=== PATIENT | female | born 1995 | race Hispanic/Latino ===

== ENCOUNTER 2017-10-28 15:20 | Emergency (ER) | payer MEDICAID, OTHER ==
[~2017-10-28 15:20] MED LIST: MO6B PO; PREN1TAB80 PO
[2017-10-28] MEDS ORDERED: SODIUM CHLORIDE 0.9% 1000ML 1,000 ML IV ONE (16:20)
[2017-10-28] MEDS ORDERED: ONDANSETRON HCL 4 MG/2 ML VIAL ONE (16:21)
[2017-10-28 16:24] LABS: BASOPHILS % (AUTO) 0.2 % (0.0-5.0); EOSINOPHILS % (AUTO) 0.1 % (0.0-8.0); HEMATOCRIT 34.7 % (36-48); LYMPHOCYTES % (AUTO) 4.9 % (21.0-51.0); MEAN CORPUSCULAR HEMOGLOBIN 25.5 pg (27.0-33.0); MEAN CORPUSCULAR HGB CONC 32.8 g/dL (32.0-36.0); MEAN CORPUSCULAR VOLUME 77.7 fL (79-99); NEUTROPHILS % (AUTO) 86.8 % (40.0-77.0); PLATELET COUNT (AUTO) 196 K/uL (130-400); RED BLOOD CELL COUNT(AUTO) 4.46 MIL/uL (4.00-5.50); WHITE BLOOD COUNT (AUTO) 12.2 K/uL (4.8-10.8)
[2017-10-28 16:28] LABS: APPEARANCE,URINE SL CLOUDY (CLEAR); BILIRUBIN,URINE NEGATIVE (NEGATIVE); COLOR,URINE YELLOW (YELLOW); GLUCOSE, URINE (UA) NEGATIVE (NEGATIVE); KETONES,URINE 5 mg/dL (NEGATIVE); LEUKOCYTE ESTERASE ,URINE NEGATIVE (NEGATIVE); NITRATE,URINE NEGATIVE (NEGATIVE); OCCULT BLOOD,URINE NEGATIVE (NEGATIVE); PH,URINE 5.5 (5.0-8.0); PROTEIN,URINE TRACE (NEGATIVE); UROBILINOGEN,URINE 0.2 mg/dL (0.2-1.0)
[2017-10-28 16:31] LABS: HCG,QUAL RESULT NEGATIVE (NEGATIVE)
[2017-10-28 16:42] LABS: RAPID GROUP A STREP POSITIVE (NEGATIVE)
[2017-10-28 16:43] LABS: BACTERIA,URINE Few /HPF (None Seen); RBC,URINE 0-1 /HPF (0-1); WBC,URINE 0-1 /HPF (0-1)
[2017-10-28 16:44] LABS: MUCUS,URINE Moderate LPF (None Seen); SQUAMOUS EPITHELIAL CELL,UR Few /HPF (0-2)
[2017-10-28 16:46] LABS: CREATININE 0.7 mg/dL (0.5-1.5); POTASSIUM 3.6 mmol/L (3.5-5.1)
[2017-10-28 16:51] LABS: ALBUMIN 3.7 g/dL (3.5-5.0); BILIRUBIN,TOTAL 1.5 mg/dL (0.2-1.0)
[2017-10-28] MEDS ORDERED: CEFTRIAXONE SODIUM 1 GM ONE (16:52)
[2017-10-28] MEDS ORDERED: SODIUM CHLORIDE 0.9% 50 ML IV ONE (16:52)
== END 2017-10-28 17:55 | disposition home or self-care (01) ==
LOC: EDH 15:20
DX: J02.0 Streptococcal pharyngitis (principal); R11.2 Nausea with vomiting, unspecified; R19.7 Diarrhea, unspecified; R50.81 Fever presenting with conditions classified elsewhere
CPT/HCPCS: 36415; 80053; 81001; 81025; 85025; 87804 ×2; 87880; 96361; 96374; 96375; 99284; J0696; J2405; J7030

== ENCOUNTER 2018-08-16 13:23 | Emergency (ER) | payer MEDICAID ==
[2018-08-16 14:51] LABS: BASOPHILS % (AUTO) 0.9 % (0.0-5.0); EOSINOPHILS % (AUTO) 2.7 % (0.0-8.0); HEMATOCRIT 34.1 % (36-48); LYMPHOCYTES % (AUTO) 24.1 % (21.0-51.0); MEAN CORPUSCULAR HEMOGLOBIN 24.8 pg (27.0-33.0); MEAN CORPUSCULAR HGB CONC 31.6 g/dL (32.0-36.0); MEAN CORPUSCULAR VOLUME 78.4 fL (79-99); MONOCYTES % (AUTO) 11.4 % (3.0-13.0); NEUTROPHILS % (AUTO) 60.9 % (40.0-77.0); PLATELET COUNT (AUTO) 268 K/uL (130-400); RED BLOOD CELL COUNT(AUTO) 4.35 MIL/uL (4.00-5.50); RED CELL DISTRIBUTION WIDTH 14.9 % (11.0-15.5); WHITE BLOOD COUNT (AUTO) 6.3 K/uL (4.8-10.8)
== END 2018-08-16 16:08 | disposition home or self-care (01) ==
LOC: EDH 13:23
DX: O20.0 Threatened abortion (principal); Z3A.01 Less than 8 weeks gestation of pregnancy
CPT/HCPCS: 36415; 76817; 84702; 85025; 86900; 86901

== ENCOUNTER 2019-09-03 20:36 | Emergency (ER) | payer MEDICAID, OTHER ==
[~2019-09-03 20:36] MED LIST changes: +IBUP-2088 PO; -MO6B PO
[2019-09-03] MEDS ORDERED: DICYCLOMINE HCL 20 MG TAB ONE (21:12)
[2019-09-03 21:23] LABS: BASOPHILS % (AUTO) 0.3 % (0.0-5.0); EOSINOPHILS % (AUTO) 0.9 % (0.0-8.0); HEMATOCRIT 36.4 % (36-48); MEAN CORPUSCULAR HEMOGLOBIN 25.8 pg (27.0-33.0); MEAN CORPUSCULAR HGB CONC 31.9 g/dL (32.0-36.0); MEAN CORPUSCULAR VOLUME 81.1 fL (79-99); MONOCYTES % (AUTO) 14.6 % (3.0-13.0); PLATELET COUNT (AUTO) 203 K/uL (130-400); RED BLOOD CELL COUNT(AUTO) 4.49 MIL/uL (4.00-5.50); RED CELL DISTRIBUTION WIDTH 13.4 % (11.0-15.5); WHITE BLOOD COUNT (AUTO) 8.9 K/uL (4.8-10.8)
[2019-09-03 21:43] LABS: CREATININE 0.7 mg/dL (0.5-1.5); POTASSIUM 3.4 mmol/L (3.5-5.1)
[2019-09-03 21:48] LABS: ALBUMIN 3.3 g/dL (3.5-5.0); BILIRUBIN,TOTAL 0.5 mg/dL (0.2-1.0)
[2019-09-03 23:27] LABS: APPEARANCE,URINE Clear (CLEAR); BILIRUBIN,URINE Negative (NEGATIVE); COLOR,URINE Yellow (YELLOW); GLUCOSE, URINE (UA) Negative (NEGATIVE); KETONES,URINE Negative (NEGATIVE); LEUKOCYTE ESTERASE ,URINE Negative (NEGATIVE); NITRATE,URINE Negative (NEGATIVE); OCCULT BLOOD,URINE Negative (NEGATIVE); PH,URINE 6.5 (5.0-8.0); PROTEIN,URINE Negative (NEGATIVE); UROBILINOGEN,URINE 0.2 mg/dL (0.2-1.0)
[2019-09-03 23:30] LABS: HCG,QUAL RESULT NEGATIVE (NEGATIVE)
[2019-09-03] MEDS ORDERED: HYOSCYAMINE SULFATE 0.125 MG TAB.SUBL SL ONE (23:47)
[2019-09-04] MEDS ORDERED: FAMOTIDINE 20MG TAB 20 MG TAB PO SCH (07:30)
== END 2019-09-04 00:20 | disposition home or self-care (01) ==
LOC: EDH 20:36
DX: R19.7 Diarrhea, unspecified (principal); R10.84 Generalized abdominal pain
CPT/HCPCS: 36415; 76705; 80053; 81003; 81025; 83690; 85025

== ENCOUNTER 2023-10-27 04:40 | Observation (INO) | payer BC, MEDICAID ==
[~2023-10-27] VITALS: Ht 162.6 cm; Wt 67.1 kg
[2023-10-27] MEDS: HYDROCODONE/ACETAMINOPHEN 5/325 MG TAB PO ONE (05:08)
[2023-10-27 05:28] LABS: BASOPHILS # (AUTO) 0.03 K/uL (0.00-0.20); BASOPHILS % (AUTO) 0.3 % (0.0-5.0); EOSINOPHILS # (AUTO) 0.12 K/uL (0.00-0.70); EOSINOPHILS % (AUTO) 1.2 % (0.0-8.0); IMMATURE GRANULOCYTE ABSOLUTE 0.04 K/uL (0-1); LYMPHOCYTES # (AUTO) 1.5 K/uL (1.0-4.8); LYMPHOCYTES % (AUTO) 14.7 % (21.0-51.0); MEAN CORPUSCULAR HEMOGLOBIN 30.5 pg (27.0-33.0); MEAN CORPUSCULAR VOLUME 87.2 fL (79-99); MONOCYTES # (AUTO) 0.8 K/uL (0.1-1.0); MONOCYTES % (AUTO) 8.1 % (3.0-13.0); NEUTROPHILS # (AUTO) 7.6 K/uL (1.8-7.7); NEUTROPHILS % (AUTO) 75.3 % (40.0-77.0); PLATELET COUNT (AUTO) 205 K/uL (130-400); RED BLOOD CELL COUNT(AUTO) 3.67 MIL/uL (4.00-5.50); RED CELL DISTRIBUTION WIDTH 12.5 % (11.0-15.5); WHITE BLOOD COUNT (AUTO) 10.1 K/uL (4.8-10.8)
[2023-10-27 05:40] LABS: CREATININE 0.6 mg/dL (0.5-1.0); POTASSIUM 3.7 mmol/L (3.5-5.1)
[2023-10-27 05:41] LABS: INR <= 0.93 (0.85-1.15); PROTHROMBIN TIME 10.4 SEC (9.6-11.6)
[2023-10-27 05:42] LABS: PARTIAL THROMBOPLASTIN TIME 25.4 SEC (26.3-35.5)
[2023-10-27 05:59] LABS: ALBUMIN 3.3 g/dL (3.5-5.0); BILIRUBIN,TOTAL 0.7 mg/dL (0.2-1.0); TOTAL PROTEIN, SERUM 7.4 g/dL (6.0-8.3)
[2023-10-27] MEDS: MORPHINE 4 MG SYG IVP ONE (07:19)
[2023-10-27] MEDS: ONDANSETRON 4MG INJ IVP ONE (07:19)
[2023-10-27] MEDS: 0.9%NACL 1000ML 1,000 ML IV ONE (07:20)
[2023-10-27 08:03] VITALS: O2SAT 100
[2023-10-27 09:30] VITALS: BP 96/59; PULSE 81; RESP 18
[2023-10-27 11:30] VITALS: BP 92/55; PULSE 71; RESP 18
[2023-10-27] MEDS ORDERED: ACET325T51 PO (14:00)
[2023-10-27 15:55] VITALS: BP 101/61; PULSE 85; RESP 18
[2023-10-27] MEDS ORDERED: MIDAZOLAM HCL 1 MG/ML 2ML VIAL ONE ×2 (17:30→17:56)
[2023-10-27] MEDS ORDERED: FENTANYL CITRATE PF 50 MCG/1 ML 2ML VIAL ONE (17:30)
[2023-10-27] MEDS ORDERED: PROPOFOL 10 MG/ML 20ML VIAL IV ONE (17:30)
[2023-10-27] MEDS ORDERED: LIDOCAINE PF 100MG/5ML (2%) SYRINGE 5ML ONE (17:30)
[2023-10-27] MEDS ORDERED: EPHEDRINE SULFATE 50 MG/ML AMPULE ONE (17:34)
[2023-10-27] MEDS ORDERED: DEXAMETHASONE SOD PHOSPHATE 10MG/ML 1ML VIAL ONE (17:39)
[2023-10-27] MEDS ORDERED: ONDANSETRON 4MG INJ ONE (17:39)
[2023-10-27] MEDS ORDERED: OXYTOCIN 10 USP UNITS/ML ONE (17:57)
[2023-10-27] MEDS: MEPERIDINE-PF 25 MG/ML SYG IVP ONE (18:47)
[2023-10-27 20:23] VITALS: BP 97/64; PULSE 104; RESP 20
[2023-10-27] MEDS ORDERED: ACETAMINOPHEN 500 MG TABLET PO PRN (21:00)
[2023-10-27] MEDS ORDERED: ACETAMINOPHEN WITH CODEINE 1 TAB TAB PO PRN (21:00)
[2023-10-27] MEDS ORDERED: ONDANSETRON 4MG INJ IVP PRN (21:00)
[2023-10-27 23:18] VITALS: BP 106/59; PULSE 92; RESP 20
[2023-10-28 03:07] VITALS: BP 96/59; PULSE 85; RESP 18
[2023-10-28 07:45] VITALS: BP 90/56; PULSE 70; RESP 18
[2023-10-28] MEDS ORDERED: FERS325 PO (09:14)
== END 2023-10-28 10:35 | disposition home or self-care (01) ==
LOC: EDH 04:40 → INTOOBSV 04:41 → EDHIP 04:41 → WSH 09:25
PROVIDERS: ADMIT Obstetrics & Gynecology; ATTEND Obstetrics & Gynecology
DX: O36.4XX0 Maternal care for intrauterine death, not applicable or unspecified (principal); Z3A.12 12 weeks gestation of pregnancy
CPT/HCPCS: 59820; 96374; 96375; 99285; 80053; 84702; 85025; 85610; 85730; 86900; 86901; 36415; 88305; 76801; G0378 ×25; J3010; J1100; J7030; J2001; J3490; J2250 ×2; J2590; J2704; J2405 ×2; J2270; J2175; J7120 ×2

== ENCOUNTER 2024-09-26 00:36 | Emergency (ER) | payer BC, MEDICAID ==
[~2024-09-26] VITALS: Ht 167.6 cm; Wt 71.2 kg
[~2024-09-26 00:36] MED LIST changes: +ACET-3859 PO; +FERS325 PO
--- NOTE | 2024-09-26 00:41 | NUR ---
UA CUP PROVIDED
--- NOTE | 2024-09-26 00:55 | NUR ---
PT CARE ASSUMED AT THIS TIME
--- NOTE | 2024-09-26 00:56 | ERN ---
General Chief Complaint: OB>20 weeks gest. Stated Complaint: , ABD PAIN, ANXIOUS, SWEATY PALMS Time Seen by MD: 00:44 Source: patient History of Present Illness Initial Comments Patient is a six three deliveries two miscarriages. She comes in because today she felt a little anxiety with numbness and tingling in her extremities. She felt a little lightheaded as well associated with nausea. She does have a right lower quadrant tenderness and pressure feelings with some contractures. She does not feel the baby move. No vomiting afebrile no fevers or chills no upper respiratory tract infections. Otherwise healthy. Allergies: Coded Allergies: No Known Drug Allergies (Verified Allergy, 11/23/12) Home Meds Reported Medications Ferrous Sulfate (Ferrous Sulfate) 325 Mg (65 Mg Iron) Ectab, 325 MG PO DAILYDINNER, #30 TAB.EC 10/28/23 Acetaminophen (Acetaminophen) 325 Mg Tablet, 650 MG PO Q6H PRN for PAIN LEVEL 4 TO 6, TAB 10/27/23 Ibuprofen (Motrin/Advil) 600 Mg Tab, 600 MG PO Q6H PRN for PAIN LEVEL 1 TO 5, #30 TAB 0 Refills 01/24/17 Vits W-Ca,Fe,FA(<1Mg) ( Vitamins) 1 Each Tablet, 1 EACH PO DAILY, TAB 09/17/14 Past Medical History Past Medical History: Hypertension Past Surgical History: None Female( History) : 5 Para: 3 Aborts: 2 Constitutional: (-) chills, (-) diaphoresis, (-) fever, (-) malaise, (-) weakness, (-) other documentation EENTM: (-) eye pain, (-) blurred vision, (-) tearing, (-) double vision, (-) ear pain, (-) ear discharge, (-) nose pain, (-) nose congestion, (-) throat pain, (-) Throat swelling, (-) mouth pain, (-) tooth pain, (-) mouth swelling, (-) other documentation Respiratory: (-) cough, (-) orthopnea, (-) short of breath, (-) stridor, (-) wheezing, (-) other documentation Cardiovascular: (-) chest pain, (-) edema, (-) palpitations, (-) syncope, (-) dyspnea on exertion, (-) other documentation Gastrointestinal/Abdominal: (+) nausea Genitourinary: (-) vaginal discharge, (-) vaginal bleeding, (-) dysuria, (-) frequency, (-) hematuria, (-) pain, (-) other documentation Musculoskeletal: (-) Neck pain, (-) back pain, (-) Flank Pain, (-) joint pain, (-) joint swelling, (-) muscle pain, (-) muscle stiffness, (-) gout, (-) other documentation Neuro: (-) altered mental status, (-) headache, (-) syncope, (-) paralysis, (-) numbness, (-) seizure, (-) pre-existing deficit, (-) tremors, (-) weakness, (-) dizziness, (-) slurred speech, (-) vertigo, (-) other documentation Physical Exam General Appearance: (+) no apparent distress Orientation: (+) alert, (+) oriented x 3 Eye: bilateral eye normal inspection, bilateral eye PERRL, bilateral eye EOMI Ear, Nose, Throat: (+) hearing grossly normal, (+) normal ENT inspection, (+) m oist mucous membraine Neck: (+) normal inspection, (+) supple, (+) full range of motion Respiratory: (+) chest non-tender, (+) lungs clear, (+) well ventilated Heart: (+) regular, (+) no gallop Gastrointestinal: (+) soft, (+) bowel sound present Gastrointestinal Comment There is right lower quadrant tenderness, more at the patient's groin. Results Laboratory and Microbiology Lab and Micro Result Laboratory Tests Test 09/26/24 01:21 White Blood Count 7.4 K/uL (4.8-10.8) Red Blood Count 4.03 MIL/uL (4.00-5.50) Hemoglobin 10.1 g/dL (12.0-16.0) L Hematocrit 33.0 % (36-48) L Mean Corpuscular Volume 81.9 fL (79-99) Mean Corpuscular Hemoglobin 25.1 pg (27.0-33.0) L Mean Corpuscular Hemoglobin Concent 30.6 g/dL (32.0-36.0) L Red Cell Distribution Width 14.4 % (11.0-15.5) Platelet Count 229 K/uL (130-400) Mean Platelet Volume 11.1 fL (7.5-10.5) H Nucleated Red Blood Cells 0.0 % (0.0-0.19) Red Blood Cell Morphology See comments Sodium Level 136 mmol/L (136-145) Potassium Level 3.6 mmol/L (3.5-5.1) Chloride Level 103 mmol/L (101-111) Carbon Dioxide Level 23 mmol/L (21-32) Blood Urea Nitrogen 7 mg/dL (7-18) Creatinine 0.5 mg/dL (0.5-1.0) Glomerular Filtration Rate Calc 129 mL/min (>90) Random Glucose 106 mg/dL (70-105) H Total Calcium 8.2 mg/dL (8.5-10.1) L MDM Not clear on what is causing the patient's symptoms. If could be simple dehydration or anemia or electrolyte imbalance. Patient is not bleeding and does not have dysuria but I will check a UA anyway. I will also do a vaginal ultrasound to confirm viability and be sure there are no concerns. I will also give the patient a L of LR. Ultrasound of the uterus shows a healthy baby no abnormalities. Patient's c hemistry panel was normal. Patient's CBC was normal. I did not order a UA as the patient had assured me there was no change in symptoms with urination at all. I offered to do a urine analysis for her and she said that that was okay we did not have to. I told her please come back if she has any hint or suspicion of a urinary tract infection. ED Course Orders Procedure Category Date Status Time Cbc Without LAB 09/26/24 Complete Differential 00:56 Basic Metabolic Panel LAB 09/26/24 Complete 00:56 Lactated Ringers PHA 09/26/24 Complete 1000ml (Lactated 00:56 Us Ob >14 Weeks US 09/26/24 Taken 00:56 Urinalysis Profile LAB 09/26/24 Logged 02:18 Current Medications Medications (Trade) Dose Ordered Sig/Martell Route PRN Reason Start Time Stop Time Status Last Admin Dose Admin Lactated Ringer's (Lactated Ringers 1000ml) 1,000 ml BOLUS STAT IV 09/26/24 00:56 09/26/24 00:58 DC 09/26/24 01:23 Vital Signs Date Time Temp Pulse Resp B/P (MAP) Pulse Ox O2 Delivery O2 Flow Rate FiO2 09/26/24 00:55 98.8 102 16 105/61 99 Room Air* 0 21 09/26/24 00:37 96.6 88 16 113/69 99 Room Air DX & DISP Disposition: Discharge Departure Impression: Primary Impression: Bilateral numbness and tingling of arms and legs Condition: Stable Additional Instructions: Please return if you have any urinary tract symptoms or concerns about the . Follow-up with your sugar laboratory assistant. Referrals: SELF,REFERRAL (PCP) LEONA SOTOMAYOR MD Sep 26, 2024 00:56
[2024-09-26] MEDS: LACTATED RINGERS 1000ML IV STA (01:23)
[2024-09-26 01:27] LABS: MEAN CORPUSCULAR HEMOGLOBIN 25.1 pg (27.0-33.0); MEAN CORPUSCULAR HGB CONC 30.6 g/dL (32.0-36.0); MEAN CORPUSCULAR VOLUME 81.9 fL (79-99); PLATELET COUNT (AUTO) 229 K/uL (130-400); RED BLOOD CELL COUNT(AUTO) 4.03 MIL/uL (4.00-5.50); RED CELL DISTRIBUTION WIDTH 14.4 % (11.0-15.5); WHITE BLOOD COUNT (AUTO) 7.4 K/uL (4.8-10.8)
[2024-09-26 01:38] LABS: CREATININE 0.5 mg/dL (0.5-1.0); POTASSIUM 3.6 mmol/L (3.5-5.1)
[2024-09-26 02:41] LABS: ADD UA MICROSCOPIC YES; APPEARANCE,URINE CLEAR (CLEAR); BILIRUBIN,URINE NEGATIVE (NEGATIVE); COLOR,URINE LIGHT-YELLOW (YELLOW); GLUCOSE, URINE (UA) NEGATIVE (NEGATIVE); KETONES,URINE NEGATIVE (NEGATIVE); LEUKOCYTE ESTERASE ,URINE 25 Leu/uL (NEGATIVE); NITRATE,URINE NEGATIVE (NEGATIVE); OCCULT BLOOD,URINE NEGATIVE (NEGATIVE); PH,URINE 6.5 (5.0-8.0); PROTEIN,URINE NEGATIVE (NEGATIVE); UROBILINOGEN,URINE 0.2 mg/dL (0.2-1.0)
[2024-09-26 02:43] LABS: MUCUS,URINE RARE LPF (None Seen); RBC,URINE 0-1 /HPF (0-1); SQUAMOUS EPITHELIAL CELL,UR RARE /HPF (0-2)
[2024-09-26 02:48] VITALS: BP 96/58; PULSE 95; RESP 17; TEMP 98.1; O2SAT 98
--- NOTE | 2024-09-26 08:59 | HMCIMG ---
US OB >14 WEEKS HISTORY: Right lower abdominal pain COMPARISON: None TECHNIQUE: ultrasound study was performed. FINDINGS: There is single intrauterine gestation with estimated gestational age of 32 weeks. heart rate is 160 beats per minute. The fetus is in cephalic presentation. weight is estimated to be 1960 grams. Amniotic fluid volume is 12.02 centimeter. The placenta is located anteriorly. No evidence of placenta previa is seen. There is no evidence of nuchal cord. IMPRESSION: 1. There is single intrauterine gestation with estimated gestational age of 32 weeks. heart rate is 160 beats per minute.
== END 2024-09-26 03:01 | disposition home or self-care (01) ==
LOC: EDH 00:36
DX: O26.893 Other specified pregnancy related conditions, third trimester (principal); R20.0 Anesthesia of skin; R20.2 Paresthesia of skin; O10.912 Unspecified pre-existing hypertension complicating pregnancy, second trimester; Z79.899 Other long term (current) drug therapy; Z3A.32 32 weeks gestation of pregnancy
CPT/HCPCS: 99284; 96360; 76805; 96361; 80048; 85027; 81001; 36415; J7120

== ENCOUNTER 2024-11-10 11:38 | Emergency (ER) | payer MEDICAID ==
[~2024-11-10] VITALS: Ht 162.6 cm; Wt 68.7 kg
[2024-11-10 12:15] LABS: APPEARANCE,URINE CLEAR (CLEAR); BILIRUBIN,URINE NEGATIVE (NEGATIVE); COLOR,URINE LIGHT-YELLOW (YELLOW); GLUCOSE, URINE (UA) NEGATIVE (NEGATIVE); KETONES,URINE NEGATIVE (NEGATIVE); LEUKOCYTE ESTERASE ,URINE 250 Leu/uL (NEGATIVE); NITRATE,URINE NEGATIVE (NEGATIVE); OCCULT BLOOD,URINE LARGE (NEGATIVE); PROTEIN,URINE NEGATIVE (NEGATIVE)
[2024-11-10 12:17] LABS: ADD UA MICROSCOPIC YES
[2024-11-10 12:22] LABS: MUCUS,URINE RARE LPF (None Seen); RBC,URINE 51-100 /HPF (0-1); SQUAMOUS EPITHELIAL CELL,UR RARE /HPF (0-2)
[2024-11-10 12:26] LABS: BASOPHILS # (AUTO) 0.03 K/uL (0.00-0.20); BASOPHILS % (AUTO) 0.3 % (0.0-5.0); EOSINOPHILS # (AUTO) 0.01 K/uL (0.00-0.70); EOSINOPHILS % (AUTO) 0.1 % (0.0-8.0); HEMATOCRIT 31.3 % (36-48); IMMATURE GRANULOCYTE ABSOLUTE 0.05 K/uL (0-1); LYMPHOCYTES # (AUTO) 0.6 K/uL (1.0-4.8); LYMPHOCYTES % (AUTO) 7.2 % (21.0-51.0); MEAN CORPUSCULAR HEMOGLOBIN 23.6 pg (27.0-33.0); MEAN CORPUSCULAR HGB CONC 30.7 g/dL (32.0-36.0); MEAN CORPUSCULAR VOLUME 77.1 fL (79-99); MONOCYTES # (AUTO) 0.6 K/uL (0.1-1.0); NEUTROPHILS # (AUTO) 7.6 K/uL (1.8-7.7); NEUTROPHILS % (AUTO) 84.8 % (40.0-77.0); PLATELET COUNT (AUTO) 248 K/uL (130-400); RED BLOOD CELL COUNT(AUTO) 4.06 MIL/uL (4.00-5.50); RED CELL DISTRIBUTION WIDTH 16.1 % (11.0-15.5); WHITE BLOOD COUNT (AUTO) 8.9 K/uL (4.8-10.8)
[2024-11-10 12:35] LABS: CREATININE 0.5 mg/dL (0.5-1.0); POTASSIUM 3.7 mmol/L (3.5-5.1)
[2024-11-10 12:39] LABS: ALBUMIN 2.5 g/dL (3.5-5.0); BILIRUBIN,TOTAL 0.7 mg/dL (0.2-1.0); TOTAL PROTEIN, SERUM 7.1 g/dL (6.0-8.3)
--- NOTE | 2024-11-10 13:03 | ERN ---
ED Note History of Present Illness Stated Complaint: ABDOMINAL PAIN Chief Complaint: Abdominal Pain Time Seen by MD: 11:47 Time Seen by Midlevel: 11:48 Dictation: 29-year-old female presents to the emergency department due to concern of having abdominal discomfort primarily to the suprapubic area. Patient states that she had a vaginal delivery on 11/07/2024. She denies having had any problems during the or the delivery. Patient states that she is pending to follow up with her Ob the. She states that she is a 6 ab 2 para 4. Patient reports having some chills associated with this. Currently, there is some r eport of having any fever or vaginal discharge. Upon initial evaluation, the patient presents mildly uncomfortable looking. 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 Home Meds Reported Medications Ferrous Sulfate (Ferrous Sulfate) 325 Mg (65 Mg Iron) Ectab, 325 MG PO DAILYDINNER, #30 TAB.EC 10/28/23 Acetaminophen (Acetaminophen) 325 Mg Tablet, 650 MG PO Q6H PRN for PAIN LEVEL 4 TO 6, TAB 10/27/23 Ibuprofen (Motrin/Advil) 600 Mg Tab, 600 MG PO Q6H PRN for PAIN LEVEL 1 TO 5, #30 TAB 0 Refills 01/24/17 Vits W-Ca,Fe,FA(<1Mg) ( Vitamins) 1 Each Tablet, 1 EACH PO DAILY, TAB 09/17/14 Past Medical History Past Medical History: Anemia, Hypotension Surgical History: None : 6 Para: 4 Aborts: 2 RN Note Reviewed/Agreed w/PFSH: Yes Review of System Dictation Abdomen/GI: Abdominal pain Initial Vital Sign VS Vital Signs Date Time Temp Pulse Resp B/P (MAP) Pulse Ox O2 Delivery O2 Flow Rate FiO2 11/10/24 11:41 100.2 103 20 106/69 100 Room Air 0 11/10/24 12:08 21 Physical Exam Dictation General: awake, alert, NAD Head/Face: Normocephalic, atraumatic Eyes: PERRL, EOMI ENT: Oral mucosa moist Neck: Trachea midline, supple Cardiovascular: RRR, no edema Respiratory: Symmetrical, non-labored Abdomen: Soft, non-tender, non-distended, no guarding. Skin: Warm, dry, good turgor, no rash MS/Extremity: Pulses equal, no cyanosis, neurovascular intact, FROM Neuro: COAx4, GCS 15, steady gait, Psych: Normal behavior, mood, and affect normal Results (Laboratory/Radiology) Laboratory/Radiology Laboratory Tests Test 11/10/24 11:59 11/10/24 12:06 White Blood Count 8.9 K/uL (4.8-10.8) Red Blood Count 4.06 MIL/uL (4.00-5.50) Hemoglobin 9.6 g/dL (12.0-16.0) L Hematocrit 31.3 % (36-48) L Mean Corpuscular Volume 77.1 fL (79-99) L Mean Corpuscular Hemoglobin 23.6 pg (27.0-33.0) L Mean Corpuscular Hemoglobin Concent 30.7 g/dL (32.0-36.0) L Red Cell Distribution Width 16.1 % (11.0-15.5) H Platelet Count 248 K/uL (130-400) Mean Platelet Volume 11.8 fL (7.5-10.5) H Immature Granulocyte % (Auto) 0.6 % (0-1) Neutrophils (%) (Auto) 84.8 % (40.0-77.0) H Lymphocytes (%) (Auto) 7.2 % (21.0-51.0) L Monocytes (%) (Auto) 7.0 % (3.0-13.0) Eosinophils (%) (Auto) 0.1 % (0.0-8.0) Basophils (%) (Auto) 0.3 % (0.0-5.0) Neutrophils # (Auto) 7.6 K/uL (1.8-7.7) Lymphocytes # (Auto) 0.6 K/uL (1.0-4.8) L Monocytes # (Auto) 0.6 K/uL (0.1-1.0) Eosinophils # (Auto) 0.01 K/uL (0.00-0.70) Basophils # (Auto) 0.03 K/uL (0.00-0.20) Absolute Immature Granulocyte (auto 0.05 K/uL (0-1) Nucleated Red Blood Cells 0.0 % (0.0-0.19) White Cell Morphology Comment See comments Red Blood Cell Morphology See comments Sodium Level 135 mmol/L (136-145) L Potassium Level 3.7 mmol/L (3.5-5.1) Chloride Level 102 mmol/L (101-111) Carbon Dioxide Level 25 mmol/L (21-32) Blood Urea Nitrogen 7 mg/dL (7-18) Creatinine 0.5 mg/dL (0.5-1.0) Glomerular Filtration Rate Calc 129 mL/min (>90) Random Glucose 97 mg/dL (70-105) Total Calcium 8.7 mg/dL (8.5-10.1) Total Bilirubin 0.7 mg/dL (0.2-1.0) Aspartate Amino Transf (AST/SGOT) 30 U/L (10-37) Alanine Aminotransferase (ALT/SGPT) 34 U/L (12-78) Alkaline Phosphatase 110 U/L (50-136) Total Protein 7.1 g/dL (6.0-8.3) Albumin 2.5 g/dL (3.5-5.0) L Lipase 35 U/L (16-77) Urine Color LIGHT-YELLOW (YELLOW) Urine Appearance CLEAR (CLEAR) Urine pH 7.0 (5.0-8.0) Urine Specific [place] 1.025 (1.001-1.031) Urine Protein NEGATIVE mg/dL (NEGATIVE) Urine Glucose (UA) NEGATIVE mg/dL (NEGATIVE) Urine Ketones NEGATIVE mg/dL (NEGATIVE) Urine Occult Blood LARGE (NEGATIVE) H Urine Nitrate NEGATIVE (NEGATIVE) Urine Bilirubin NEGATIVE mg/dL (NEGATIVE) Urine Urobilinogen 2.0 mg/dL (0.2-1.0) H Urine Leukocyte Esterase 250 Atif/uL (NEGATIVE) H Urine RBC 51-100 /HPF (0-1) H Urine WBC 11-25 /HPF (0-1) H Urine Squamous Epithelial Cells RARE /HPF (0-2) Urine Bacteria None /HPF (None Seen) Labs Reviewed?: Yes Ultrasound Comment: Ultrasound pelvic nonobstructive complete for no concerned with retained products of conception. ED Course ED Course Orders Procedure Category Date Status Time Cbc With Differential LAB 11/10/24 Complete 12:08 Comprehensive LAB 11/10/24 Complete Metabolic Panel 12:08 Urinalysis Profile LAB 11/10/24 Complete 12:08 Lipase LAB 11/10/24 Complete 12:08 Saline Lock Iv CPOE 11/10/24 Transmitted 12:08 Us Pelvic Non-Ob Comp US 11/10/24 Resulted 12:08 Culture Urine DARIN 11/10/24 In Process 12:20 0.9%Nacl 1000ml (Ns PHA 11/10/24 Complete 1000ml) 13:30 Current Medications Medications (Trade) Dose Ordered Sig/Martell Route PRN Reason Start Time Stop Time Status Last Admin Dose Admin Sodium Chloride 1,000 ml @ 0 mls/hr ONCE ONCE IV 11/10/24 13:30 11/10/24 13:31 DC Vital Signs Date Time Temp Pulse Resp B/P (MAP) Pulse Ox O2 Delivery O2 Flow Rate FiO2 11/10/24 13:56 99.0 75 18 123/73 99 Room Air* 0 21 11/10/24 12:08 100.2 113 20 117/73 98 Room Air* 0 21 11/10/24 11:41 100.2 103 20 106/69 100 Room Air 0 Medical Decision Making MDM MDM: Differential diagnosis: Acute abdominal pain, retained products of conception, acute UTI. Rationale: Tests considered and ordered secondary to shared decision making include: Previous outside records reviewed: Old ER visits. Risk of complication and/or morbidity or mortality of patient management: None Medications-Per medication reconciliation Need for hospitalization: Patient does not meet criteria for hospitalization. Need for emergency major/minor surgery: No There are no social concerns with this patient. Prescription drug management Prescriptions will include symptomatic care Patient's prior external medical records from other ER visits were reviewed by me as indicated. Prior testing and results from previous visits were reviewed. Prior tests were taken into account with medical decision making and resource utilization, independent historian/historians were used to obtain complete medical history. I independently interpreted the test that were performed, results were reviewed by me and considered findings on radiology if ordered. Medical management and examination interpretation discussions were had by me with other qualified healthcare professionals as indicated for the patient's care. DX & DISP Disposition: Discharge Departure Impression: Primary Impression: Acute UTI Additional Impression: Acute abdominal pain Condition: Stable Scripts Cephalexin (Cephalexin) 500 Mg Tablet 1 TAB PO BID for 7 Days, #14 TAB 0 Refills Prov: CIARA GARIBAY 11/10/24 Referrals: DAVID FARRAR JR, MD (PCP) CIARA GARIBAY Nov 10, 2024 13:03
[2024-11-10 13:56] VITALS: BP 123/73; PULSE 75; RESP 18; TEMP 99; O2SAT 99
--- NOTE | 2024-11-10 14:02 | HMCIMG ---
Exam Type: US PELVIC NON-OB COMP Clinical Information: pain Comparison: None Findings: The uterus is normal in size and echogenicity. The endometrial lining is normal in thickness. No intrauterine or ectopic seen. The right ovary is obscured. The left ovary is unremarkable. Ovaries are normal in size and echogenicity. Vascular Doppler flow exam and spectral analysis of waveforms analysis is unremarkable bilaterally. There is preserved vascularity to both ovaries on Doppler evaluation. Specifically, there is no evidence of ovarian torsion. No free fluid is noted throughout the cul-de-sac. There are no adnexal abnormalities. No other significant abnormalities are seen. No fluid collections or masses or free fluid are identified in the pelvis. Impression: Normal uterus and endometrium. Obscured right ovary.
[2024-11-10] MEDS ORDERED: CEPH500T PO (14:16)
[2024-11-10] MEDS: 0.9%NACL 1000ML 1,000 ML IV ONE (14:34)
== END 2024-11-10 14:56 | disposition home or self-care (01) ==
LOC: EDH 11:38
DX: N39.0 Urinary tract infection, site not specified (principal); R10.84 Generalized abdominal pain; Z79.899 Other long term (current) drug therapy
CPT/HCPCS: 36415; 76856; 80053; 81001; 83690; 85025; 87086; 99284